=== PATIENT | female | born 1960 | race Caucasian/White ===

== ENCOUNTER 2018-02-07 11:40 | Emergency (ER) | payer BC, OTHER ==
[~2018-02-07] VITALS: Ht 165.1 cm; Wt 101.7 kg
[~2018-02-07 11:40] MED LIST: ADVAI250I PO; AMLO5 PO; BUPR300T PO; CELE200C PO; DYAZ; ESZO3 PO; LORTA5 PO
[2018-02-07 11:47] VITALS: BP 133/77; PULSE 95; RESP 16; TEMP 97.8; O2SAT 96
[2018-02-07] MEDS ORDERED: LUNE1TAB8 PO (11:59)
[2018-02-07] MEDS ORDERED: LEVO.15 PO (11:59)
[2018-02-07] MEDS ORDERED: BUPR100CR PO (11:59)
[2018-02-07] MEDS ORDERED: SULFAMETHOXAZOLE-TRIMETHOPRIM DS 800-160 MG TAB PO ONE (12:15)
[2018-02-07] MEDS ORDERED: CEPHALEXIN MONOHYDRATE 500 MG CAP PO ONE (12:15)
[2018-02-07] MEDS ORDERED: MUPI2OIN TOPICAL (12:16)
[2018-02-07] MEDS ORDERED: BACT800T5 PO (12:16)
[2018-02-07] MEDS ORDERED: CEPH-460 PO (12:16)
--- NOTE | 2018-02-07 12:17 | PD ---
HPI Chief Complaint: Skin Problem Time Seen by Provider: 12:08 Travel History International Travel<30 days: No Contact w/Intl Traveler<30days: No Traveled to known affect area: No History of Present Illness HPI 57-year-old female presents to the emergency department for evaluation of skin problem to her left lower extremity, around the ankle that started approximately 2 weeks ago. She states it started with one small pustule and has worsened from there. Patient denies any fevers or chills. She reports tenderness to palpation, 2/10. She is not currently on antibiotics. Mild severity. PFSH Past Medical History Cancer: Yes (THYROID CA) Cardiovascular Problems: No Diabetes: No Endocrine: No Genitourinary: No Hepatitis: No Hiatal Hernia: No Immune Disorder: No Musculoskeletal: No Neurologic: No Psychiatric: No Reproductive: No Respiratory: Yes (ASTHMA) Thyroid Disease: Yes (THYROID CA) Past Surgical History Abdominal Surgery: No AICD: No Body Medical Devices: BILAT KNEES AND RIGHT FOOT Cardiac Surgery: No Ear Surgery: No Endocrine Surgery: No Eye Surgery: No Genitourinary Surgery: No Gynecologic Surgery: Yes (HYSTERECTOMY) Joint Replacement: Yes (BILAT KNEES) Oral Surgery: Yes (TONSILLECTOMY) Pacemaker: No Thoracic Surgery: No Other Surgery: Yes (THYROID REMOVED) Social History Alcohol Use: No Tobacco Use: No Substance Use: No Allergies-Medications (Allergen,Severity, Reaction): Coded Allergies: sodium fluoride (Unverified Allergy, Unknown, VOMITING, 02/07/18) LARGE AMOUNTS CAUSE REACTION Reported Meds & Prescriptions Reported Meds & Active Scripts Active Reported Lunesta (Eszopiclone) 1 Mg Tab Unknown Dose PO HS PRN Wellbutrin SR 12 HR (Bupropion HCl) 100 Mg Tab Unknown Dose PO Q12HR Synthroid (Levothyroxine Sodium) 150 Mcg Tab 150 Mcg PO DAILY Review of Systems Except as stated in HPI: all other systems reviewed are Neg Physical Exam Narrative GENERAL: Well-nourished, well-developed female patient, ambulatory. Afebrile. SKIN: Focused skin assessment warm/dry. Patient has multiple erythematous papules/pustules to left lower extremity with 2 that are draining. No lymphangitis. HEAD: Normocephalic. Atraumatic. EYES: No scleral icterus. No injection or drainage. NECK: Supple, trachea midline. No JVD or lymphadenopathy. CARDIOVASCULAR: Regular rate and rhythm without murmurs, gallops, or rubs. RESPIRATORY: Breath sounds equal bilaterally. No accessory muscle use. Lung sounds are clear to auscultation. GASTROINTESTINAL: Abdomen soft, non-tender, nondistended. MUSCULOSKELETAL: No cyanosis, or edema. Data Data Last Documented VS Vital Signs Date Time Temp Pulse Resp B/P (MAP) Pulse Ox O2 Delivery O2 Flow Rate FiO2 02/07/18 11:47 97.8 95 16 133/77 (95) 96 Orders Orders Sulfamet-Trimeth Ds 800-160 Mg (Bactrim (02/07/18 12:15) Cephalexin (Keflex) (02/07/18 12:15) [facility] Medical Decision Making Medical Screen Exam Complete: Yes Emergency Medical Condition: Yes Medical Record Reviewed: Yes Differential Diagnosis Cellulitis versus abscess versus insect bites Narrative Course 57-year-old female presents to the emergency department for evaluation of skin problems left lower extremity. Physical exam is consistent with a mild cellulitis. Patient will be started on Bactrim and Keflex. She is given her first dose here. She will also be given a prescription for mupirocin ointment. She is instructed on proper wound care. She is to follow with her primary care physician and return here for any acute worsening of symptoms. Diagnosis Primary Impression: Cellulitis Qualified Codes: L03.90 - Cellulitis, unspecified Referrals: Primary Care Physician call for appointment Patient Instructions: Cellulitis (ED), General Instructions Additional Instructions: Clean area twice daily with soap and water and apply prescribed antibiotic ointment. Take antibiotics as directed until gone. Keep clean and dry. Follow-up with a primary care physician. Return to the emergency department for any acute worsening of symptoms. Med/Other Pt SpecificInfo: Prescription(s) given Scripts Mupirocin Topical (Mupirocin Topical) 2 % Oint 1 APPLIC TOPICAL BID for Mgmt Bacterial Infection, #22 GM 0 Refills Prov: Isi Pang 02/07/18 Cephalexin (Keflex) 500 Mg Capsule 500 MG PO Q6H for Infection for 10 Days, #40 CAP 0 Refills Prov: Isi Pang 02/07/18 Sulfamethoxazole-Trimethoprim (Bactrim DS) 800-160 Mg Tab 1 TAB PO BID for Infection, #20 TAB 0 Refills Prov: Isi Pang 02/07/18 Disposition: 01 DISCHARGE HOME Condition: Stable Isi Pang Feb 07, 2018 12:17
== END 2018-02-07 12:25 | disposition home or self-care (01) ==
LOC: PHEFT 11:40
DX: L03.116 Cellulitis of left lower limb (principal); B95.62 Methicillin resistant Staphylococcus aureus infection as the cause of diseases classified elsewhere; Z16.19 Resistance to other specified beta lactam antibiotics; Z16.11 Resistance to penicillins; J45.909 Unspecified asthma, uncomplicated; Z85.850 Personal history of malignant neoplasm of thyroid
CPT/HCPCS: 86403; 87070; 87186; 87205; 99283

== ENCOUNTER 2018-03-23 15:42 | Emergency (ER) | payer OTHER ==
[~2018-03-23] VITALS: Ht 167.6 cm; Wt 107.3 kg
[~2018-03-23 15:42] MED LIST changes: -ADVAI250I PO; -AMLO5 PO; +BACT800T5 PO; +BUPR100CR PO; -BUPR300T PO; -CELE200C PO; +CEPH-460 PO; -DYAZ; -ESZO3 PO; +LEVO.15 PO; -LORTA5 PO; +LUNE1TAB8 PO; +MUPI2OIN TOPICAL
[2018-03-23 15:47] VITALS: BP 159/79; PULSE 83; RESP 20; TEMP 97.8
[2018-03-23] MEDS ORDERED: methylPREDNISolone SOD SUCC 125 MG/2 ML VIAL IV PUSH ONE (16:30)
[2018-03-23] MEDS ORDERED: RESP: ALBUTEROL 2.5 MG/3 ML NEB (SCH) INH ONE (16:30)
[2018-03-23] MEDS ORDERED: SODIUM CHLORIDE 0.9% FLUSH 10 ML FLUSH IVF PRN (16:30)
[2018-03-23] MEDS ORDERED: TRIA1CAP6 PO (16:33)
[2018-03-23] MEDS ORDERED: LOSA100T2 PO (16:33)
[2018-03-23] MEDS ORDERED: ADVA100A INH (16:33)
[2018-03-23] MEDS ORDERED: AMLO2.5T PO (16:33)
[2018-03-23 16:45] VITALS: O2SAT 96
--- NOTE | 2018-03-23 16:48 | RADRPT ---
EXAM DATE/TIME: 03/23/2018 16:30 [facility] COMPARISON: No previous studies available for comparison. INDICATIONS : Shortness of breath. MEDICAL HISTORY : Asthma. SURGICAL HISTORY : None. ENCOUNTER: Initial ACUITY: 1 day PAIN SCORE: 0/10 LOCATION: Bilateral chest FINDINGS: Mild interstitial prominence without significant focal pleural-parenchymal opacities. Cardiomediastin al contours are within normal limits. Suspect degenerative change of the right shoulder although this is incompletely imaged. Bony thorax is otherwise intact. CONCLUSION: 1. Mild diffuse interstitial prominence of unknown chronicity given lack of prior exams. Interstitial edema cannot be excluded. 1. Rl Armenta MD on March 23, 2018 at 16:44 Board Certified Radiologist. This report was verified electronically.
[2018-03-23 17:10] LABS: AUTOMATED NEUTROPHIL # 8.2 TH/MM3 (1.8-7.7); BASOPHIL % 0.4 % (0.0-2.0); EOSINOPHIL # 0.4 TH/MM3 (0-0.4); EOSINOPHIL % 3.3 % (0.0-4.0); HEMATOCRIT 35.1 % (35.0-46.0); HEMOGLOBIN 11.7 GM/DL (11.6-15.3); LYMPH % 20.5 % (9.0-44.0); LYMPHOCYTE # 2.4 TH/MM3 (1.0-4.8); MEAN CELL VOLUME 81.5 FL (80.0-100.0); MEAN CORPUSCULAR HEMOGLOBIN 27.3 PG (27.0-34.0); MEAN CORPUSCULAR HGB CONC 33.5 % (32.0-36.0); MEAN PLATELET VOLUME 7.9 FL (7.0-11.0); MONO % 5.9 % (0.0-8.0); MONOCYTE # 0.7 TH/MM3 (0-0.9); NEUT % 69.9 % (16.0-70.0); PLATELET COUNT 315 TH/MM3 (150-450); WHITE BLOOD COUNT 11.7 TH/MM3 (4.0-11.0)
[2018-03-23 17:12] LABS: BILIRUBIN, URINE NEG (NEG); BLOOD, URINE TRACE (NEG); GLUCOSE,URINE NEG (NEG); KETONE, URINE NEG (NEG); NITRITE,URINE NEG (NEG); URINE COLOR YELLOW (YELLW/STRAW); URINE LEUKOCYTE ESTERASE NEG (NEG)
[2018-03-23 17:22] LABS: SQUAMOUS EPITHELIAL CELL URINE 0-5 /hpf (0-5)
[2018-03-23 17:24] LABS: CHLORIDE 108 MEQ/L (98-107); SODIUM (NA) 141 MEQ/L (136-145)
--- NOTE | 2018-03-23 17:26 | PD ---
HPI Chief Complaint: Edema Time Seen by Provider: 16:07 Travel History International Travel<30 days: No Contact w/Intl Traveler<30days: No Traveled to known affect area: No History of Present Illness HPI The patient's 57 years old. For the past 2 weeks she has had total body swelling. She notes swelling but the eyes at night. She reports shortness of breath on exertion. She reports some throat swelling. She reports her entire body feels tender to touch. She took daffodil pills for swelling which seem to have made a difference. She denies chest pain. Urination has been normal. No new or different medication. No fever. She went to an urgent care facility which advised her to come here. She has an appointment with Dr. Rendon tomorrow. [facility] Past Medical History Cancer: Yes (THYROID CA) Cardiovascular Problems: No Diabetes: No Endocrine: No Genitourinary: No Hepatitis: No Hiatal Hernia: No Immune Disorder: No Musculoskeletal: No Neurologic: No Psychiatric: No Reproductive: No Respiratory: Yes (ASTHMA) Thyroid Disease: Yes (THYROID CA) Tetanus Vaccination: > 5 Years ?: Not Past Surgical History Abdominal Surgery: No AICD: No Body Medical Devices: BILAT KNEES AND RIGHT FOOT Cardiac Surgery: No Ear Surgery: No Endocrine Surgery: No Eye Surgery: No Genitourinary Surgery: No Gynecologic Surgery: Yes (HYSTERECTOMY) Hysterectomy: Yes Joint Replacement: Yes (BILAT KNEES) Oral Surgery: Yes (TONSILLECTOMY) Pacemaker: No Thoracic Surgery: No Other Surgery: Yes (THYROID REMOVED) Social History Alcohol Use: No Tobacco Use: No Substance Use: No Allergies-Medications (Allergen,Severity, Reaction): Coded Allergies: sodium fluoride (Verified Allergy, Unknown, VOMITING, 03/23/18) LARGE AMOUNTS CAUSE REACTION Reported Meds & Prescriptions Reported Meds & Active Scripts Active Reported Amlodipine (Amlodipine Besylate) 2.5 Mg Tab 2.5 Mg PO DAILY Advair Diskus Inh (Fluticasone-Salmeterol Inh) 100-50 Mcg/Blist Aer 1 Puff INH BID Rinse mouth after use. Losartan-Hydrochlorothiazide 100-25 Mg Tab 1 Tab PO DAILY Dyrenium (Triamterene) 50 Mg Cap Unknown Dose PO DAILY Lunesta (Eszopiclone) 1 Mg Tab Unknown Dose PO HS PRN Wellbutrin SR 12 HR (Bupropion HCl) 100 Mg Tab Unknown Dose PO Q12HR Synthroid (Levothyroxine Sodium) 150 Mcg Tab 150 Mcg PO DAILY Review of Systems Except as stated in HPI: all other systems reviewed are Neg General / Constitutional: No: Fever Physical Exam Narrative GENERAL: 57-year-old female pleasant well-nourished well-developed Vital Signs Date Time Temp Pulse Resp B/P (MAP) Pulse Ox O2 Delivery O2 Flow Rate FiO2 03/23/18 15:47 97.8 83 20 159/79 (105) SKIN: Warm and dry. HEAD: Atraumatic. Normocephalic. EYES: Pupils equal and round. No scleral icterus. No injection or drainage. ENT: No nasal bleeding or discharge. Mucous membranes pink and moist. Posterior oropharynx is widely patent. NECK: Trachea midline. No JVD. CARDIOVASCULAR: Regular rate and rhythm. RESPIRATORY: No accessory muscle use. Clear to auscultation. Breath sounds equal bilaterally. GASTROINTESTINAL: Abdomen soft, non-tender, nondistended. Hepatic and splenic margins not palpable. MUSCULOSKELETAL: There is 2+ pitting edema from the feet to the knees. There is minimal erythema about the bilateral lower extremities. There is no ballottement of the patella. Range of motion of the knees is normal. I do not appreciate swelling about the hand and wrist however the patient says it is present. NEUROLOGICAL: Awake and alert. No obvious cranial nerve deficits. Motor grossly within normal limits. Five out of 5 muscle strength in the arms and legs. Normal speech. PSYCHIATRIC: Appropriate mood and affect; insight and judgment normal. Data Data Last Documented VS Vital Signs Date Time Temp Pulse Resp B/P (MAP) Pulse Ox O2 Delivery O2 Flow Rate FiO2 03/23/18 17:40 88 20 103/73 (83) 96 Room Air 03/23/18 15:47 97.8 Orders Orders Complete Blood Count With Diff (03/23/18 16:24) Comprehensive Metabolic Panel (03/23/18 16:24) B-Type Natriuretic Peptide (03/23/18 16:24) Act Partial Throm Time (Ptt) (03/23/18 16:24) Prothrombin Time / Inr (Pt) (03/23/18 16:24) Magnesium (Mg) (03/23/18 16:24) Ckmb (Isoenzyme) Profile (03/23/18 16:24) Troponin I (03/23/18 16:24) Urinalysis - C+S If Indicated (03/23/18 16:24) Iv Access Insert/Monitor (03/23/18 16:24) Electrocardiogram (03/23/18 16:24) Ecg Monitoring (03/23/18 16:24) Oximetry (03/23/18 16:24) Oxygen Administration (03/23/18 16:24) Chest, Pa & Lat (03/23/18 16:24) Sodium Chloride 0.9% Flush (Ns Flush) (03/23/18 16:30) Methylprednisolone So Succ Inj (Solumedr (03/23/18 16:30) Albuterol Neb (Albuterol Neb) (03/23/18 16:30) Us Leg Venous Doppler Bilat (03/23/18 ) Furosemide Inj (Lasix Inj) (03/23/18 17:30) CKMB (03/23/18 17:00) CKMB% (03/23/18 17:00) Labs Laboratory Tests Test 03/23/18 17:00 White Blood Count 11.7 TH/MM3 Red Blood Count 4.30 MIL/MM3 Hemoglobin 11.7 GM/DL Hematocrit 35.1 % Mean Corpuscular Volume 81.5 FL Mean Corpuscular Hemoglobin 27.3 PG Mean Corpuscular Hemoglobin Concent 33.5 % Red Cell Distribution Width 14.0 % Platelet Count 315 TH/MM3 Mean Platelet Volume 7.9 FL Neutrophils (%) (Auto) 69.9 % Lymphocytes (%) (Auto) 20.5 % Monocytes (%) (Auto) 5.9 % Eosinophils (%) (Auto) 3.3 % Basophils (%) (Auto) 0.4 % Neutrophils # (Auto) 8.2 TH/MM3 Lymphocytes # (Auto) 2.4 TH/MM3 Monocytes # (Auto) 0.7 TH/MM3 Eosinophils # (Auto) 0.4 TH/MM3 Basophils # (Auto) 0.0 TH/MM3 CBC Comment DIFF FINAL Differential Comment Prothrombin Time 10.9 SEC Prothromb Time International Ratio 1.1 RATIO Activated Partial Thromboplast Time 26.3 SEC Urine Color YELLOW Urine Turbidity CLEAR Urine pH 6.0 Urine Specific [place] 1.010 Urine Protein NEG mg/dL Urine Glucose (UA) NEG mg/dL Urine Ketones NEG mg/dL Urine Occult Blood TRACE Urine Nitrite NEG Urine Bilirubin NEG Urine Urobilinogen 0.2 MG/DL Urine Leukocyte Esterase NEG Urine Squamous Epithelial Cells 0-5 /hpf Microscopic Urinalysis Comment CULT NOT INDICATED Blood Urea Nitrogen 13 MG/DL Creatinine 1.10 MG/DL Random Glucose 88 MG/DL Total Protein 7.1 GM/DL Albumin 3.8 GM/DL Calcium Level 9.1 MG/DL Magnesium Level 2.4 MG/DL Alkaline Phosphatase 124 U/L Aspartate Amino Transf (AST/SGOT) 17 U/L Alanine Aminotransferase (ALT/SGPT) 28 U/L Total Bilirubin 0.7 MG/DL Sodium Level 141 MEQ/L Potassium Level 3.9 MEQ/L Chloride Level 108 MEQ/L Carbon Dioxide Level 27.7 MEQ/L Anion Gap 5 MEQ/L Estimat Glomerular Filtration Rate 51 ML/MIN Total Creatine Kinase 157 U/L Troponin I LESS THAN 0.02 NG/ML B-Type Natriuretic Peptide 136 PG/ML MDM Medical Decision Making Medical Screen Exam Complete: Yes Emergency Medical Condition: Yes Medical Record Reviewed: Yes Differential Diagnosis CHF, renal disease, cellulitis, cirrhosis Narrative Course EKG shows sinus rhythm at a rate of 76, no ischemic injury pattern Last Impressions Chest X-Ray 03/23/18 1624 Signed Impressions: Service Date/Time: Friday, March 23, 2018 16:30 - CONCLUSION: 1. Mild diffuse interstitial prominence of unknown chronicity given lack of prior exams. Interstitial edema cannot be excluded. 1. Rl Armenta MD CBC & BMP Diagram 03/23/18 17:00 Total Protein 7.1, Albumin 3.8, Calcium Level 9.1, Magnesium Level 2.4, Alkaline Phosphatase 124 H, Aspartate Amino Transf (AST/SGOT) 17, Alanine Aminotransferase (ALT/SGPT) 28, Total Bilirubin 0.7 BNP is 136 Troponin is undetectable Lower extremity ultrasound shows no DVT Trace component of interstitial edema might be visualized on x-ray. Lasix given. The patient has generalized edema and I would be in keeping with volume overload. An element of asthma is also considered. The patient is quite responsible and overall really well-appearing. I do not believe stay in the hospital would confer a substantial benefit to the patient. Furthermore she has follow-up with Dr. Rendon tomorrow. The patient would likely benefit from an echocardiogram potentially a stress test. Continuation of Lasix over the next few days is considered reasonable. A course of prednisone also likely to be of some benefit. Patient agreeable overall all the above. Diagnosis Primary Impression: Interstitial edema Qualified Codes: R60.9 - Edema, unspecified Additional Impressions: Edema of both legs Complaints of total body pain Asthma exacerbation Qualified Codes: J45.901 - Unspecified asthma with (acute) exacerbation Referrals: Primary Care Physician call for appointment Med/Other Pt SpecificInfo: Prescription(s) given Scripts Prednisone (Prednisone) 20 Mg Tab 40 MG PO DAILY for 4 Days, #8 TAB 0 Refills Take 40 mg (2 tablets) daily for 5 days Prov: Tk Fishman MD 03/23/18 Furosemide (Lasix) 20 Mg Tab 20 MG PO DAILY for 7 Days, #10 TAB 0 Refills Prov: Tk Fishman MD 03/23/18 Disposition: 01 DISCHARGE HOME Condition: Stable Tk Fishman MD March 23, 2018 17:25
[2018-03-23 17:28] LABS: ALBUMIN 3.8 GM/DL (3.4-5.0); BICARBONATE 27.7 MEQ/L (21.0-32.0); BLOOD UREA NITROGEN 13 MG/DL (7-18); CALCIUM 9.1 MG/DL (8.5-10.1); GLUCOSE,RANDOM 88 MG/DL (74-106); MAGNESIUM 2.4 MG/DL (1.5-2.5)
--- NOTE | 2018-03-23 17:28 | RADRPT ---
EXAM DATE/TIME: 03/23/2018 17:05 [facility] COMPARISON: No previous studies available for comparison. INDICATIONS : Shortness of breath. Leg swelling. MEDICAL HISTORY : Thyroid cancer. SURGICAL HISTORY : Thyroidectomy.Tonsillectomy. Hysterectomy.Bilateral knee replacement. ENCOUNTER: Initial ACUITY: 1 day PAIN SCORE: 5/10 LOCATION: Bilateral leg. TECHNIQUE: Venous ultrasound of the left and right leg was performed from the inguinal ligament to the proximal calf. Real-time, color Doppler and spectral tracing, compression and augmentation techniques were us ed. FINDINGS: RIGHT LEG: There is normal compressibility of the deep venous system from the inguinal region to the proximal ca lf. No echogenic clot is seen in the lumen of the common femoral, femoral, popliteal, and posterior tibial veins. There is a normal response of the venous system to proximal and distal augmentation an d respiration. LEFT LEG: There is normal compressibility of the deep venous system from the inguinal region to the proximal ca lf. No echogenic clot is seen in the lumen of the common femoral, femoral, popliteal, and posterior tibial veins. There is a normal response of the venous system to proximal and distal augmentation an d respiration. CONCLUSION: Normal examination. Abdifatah Craig MD on March 23, 2018 at 17:26 Board Certified Radiologist. This report was verified electronically.
[2018-03-23 17:29] LABS: INTERNATIONAL NORMALIZED RATIO 1.1 RATIO; PROTHROMBIN TIME - PATIENT 10.9 SEC (9.8-11.6)
[2018-03-23] MEDS ORDERED: FUROSEMIDE 20 MG/2 ML VIAL IV PUSH ONE (17:30)
[2018-03-23 17:31] LABS: ALT (GPT) 28 U/L (10-53); AST (GOT) 17 U/L (15-37); GLOMERULAR FILTRATION RATE 51 ML/MIN (>89)
[2018-03-23 17:33] LABS: TOTAL BILIRUBIN ADULT 0.7 MG/DL (0.2-1.0); TOTAL PROTEIN 7.1 GM/DL (6.4-8.2)
[2018-03-23 17:34] LABS: ALKALINE PHOSPHATASE 124 U/L (45-117)
[2018-03-23 17:36] LABS: TROPONIN I LESS THAN 0.02 NG/ML (0.02-0.05)
[2018-03-23 17:40] VITALS: BP 103/73; PULSE 88; RESP 20; O2SAT 96
[2018-03-23] MEDS ORDERED: FURO1TAB62 PO (17:48)
[2018-03-23] MEDS ORDERED: PRED20 PO (17:48)
--- NOTE | 2018-03-24 16:37 | EKG ---
Date Performed: 03/23/2018 Time Performed: 17:06:42 PTAGE: 57 years EKG: Sinus rhythm LOW QRS VOLTAGE IN PRECORDIAL LEADS NONSPECIFIC ST & T-WAVE ABNORMALITY BORDERLINE ECG PREVIOUS TRACING : 08/25/2015 12.07 Since the previous tracing, no significant change noted DOCTOR: Rene Hallman Interpretating Date/Time 03/24/2018 16:35:42
== END 2018-03-23 18:26 | disposition home or self-care (01) ==
LOC: PHED 15:42
DX: R60.9 Edema, unspecified (principal); R60.0 Localized edema; R52 Pain, unspecified; J45.901 Unspecified asthma with (acute) exacerbation; R94.31 Abnormal electrocardiogram [ECG] [EKG]; Z85.850 Personal history of malignant neoplasm of thyroid
CPT/HCPCS: 71046; 80053; 81001; 82550; 82552; 83735; 83880; 84484; 85025; 85610; 85730; 93005; 93970; 94664; 96374; 96375; 99285; J1940; J2930; J7613